=== PATIENT | male | born 1995 | race Two or more races ===

== ENCOUNTER 2020-11-16 18:24 | Emergency (ER) | payer OTHER, SELFPAY ==
[~2020-11-16] VITALS: Ht 180.3 cm; Wt 104.3 kg
[2020-11-16] MEDS ORDERED: GUAIFENESIN LA 600 MG TABLET.SA PO ONE (18:47)
[2020-11-16] MEDS ORDERED: predniSONE 20 MG TABLET ONE (18:47)
[2020-11-16] MEDS ORDERED: IBUPROFEN 400 MG TABLET ONE (18:48)
[2020-11-16] MEDS: IBUPROFEN 400 MG TABLET PO ONE (18:53)
[2020-11-16] MEDS: GUAIFENESIN LA 600 MG TABLET.SA PO ONE (18:54)
[2020-11-16] MEDS: predniSONE 50 MG TABLET PO ONE (18:54)
[2020-11-16] MEDS ORDERED: GUAI1TBM19 PO (19:47)
[2020-11-16] MEDS ORDERED: BENZ-13 PO (19:47)
[2020-11-16] MEDS ORDERED: AZIT250T13 PO (19:47)
[2020-11-16] MEDS ORDERED: PRED50TA PO (19:51)
--- NOTE | 2020-11-16 19:54 | NUR ---
Patient discharged to home in stable condition. Written and verbal after care instructions given. Patient verbalizes understanding of instruction. RX given
[2020-11-16 19:55] VITALS: BP 133/60
== END 2020-11-16 19:57 | disposition home or self-care (01) ==
LOC: ER 18:29
DX: U07.1 COVID-19 (principal); J12.82 Pneumonia due to coronavirus disease 2019; Z79.899 Other long term (current) drug therapy
CPT/HCPCS: 71045; 99284; J7512

== ENCOUNTER 2022-06-29 17:37 | Emergency (ER) | payer OTHER ==
[~2022-06-29] VITALS: Ht 180.3 cm; Wt 111.1 kg
[~2022-06-29 17:37] MED LIST: AZIT250T13 PO; BENZ-13 PO; GUAI1TBM19 PO; PRED50TA PO
--- NOTE | 2022-06-29 17:37 | NUR ---
CALLED TO TRIAGE, NO RESPONSE
--- NOTE | 2022-06-29 17:47 | NUR ---
CALLED TO TRIAGE, NO RESPONSE
--- NOTE | 2022-06-29 18:05 | NUR ---
CALLED TO TRIAGE, NO ANSWER.
[2022-06-29 18:29] VITALS: BP 136/81
--- NOTE | 2022-06-29 20:47 | NUR ---
CALLED TO ER, NOT IN WAITING AREA
== END 2022-06-30 01:13 | disposition left against medical advice (07) ==
LOC: ER 17:44
DX: S01.81XA Laceration without foreign body of other part of head, initial encounter (principal); Z53.21 Procedure and treatment not carried out due to patient leaving prior to being seen by health care provider; X58.XXXA Exposure to other specified factors, initial encounter; Y93.89 Activity, other specified; Y92.89 Other specified places as the place of occurrence of the external cause; Y99.8 Other external cause status